=== PATIENT | female | born 2000 | race Caucasian/White ===

== ENCOUNTER → 2021-09-24 09:26 | Outpatient (BNVA) | payer OTHER, SELFPAY | PROVIDERS: Family Provider Family Medicine; PCP Nurse Practitioner Family; Visit Provider Obstetrics & Gynecology | DX: Z12.4 Encounter for screening for malignant neoplasm of cervix (principal) | CPT/HCPCS: 88175 ==

== ENCOUNTER 2022-08-26 03:54 | Inpatient (IN) | payer OTHER, SELFPAY ==
[2022-08-26] VITALS (105 sets, daily range): BP systolic 102–179; BP diastolic 54–102; PULSE 80–137; RESP 16–20; TEMP 36.1–37.6; O2SAT 96–99; BMI 39.6
[2022-08-26] MEDS: lactated ringers 1,000 ML 999 ML IV (01:44)
[2022-08-26] MEDS: fentaNYL 50 mcg/mL INJ 2mL IVP ×2 (01:44→02:46)
[2022-08-26 01:59] LABS: Basophils % 0.1 %; Eosinophils # 0.1 10^3/uL (0.0-0.8); Eosinophils % 0.6 %; Hematocrit 37.8 % (37.0-47.0); Hemoglobin 12.3 g/dL (11.5-15.3); Lymphocytes # 2.2 10^3/uL (0.8-4.8); Lymphocytes % 13.2 %; Mean Corpuscular HGB Conc 32.5 g/dL (30.0-36.0); Mean Corpuscular Hemoglobin 27.7 pg (28.0-34.0); Mean Corpuscular Volume 85.1 fl (81-99); Mean Platelet Volume 14.1 fL (7.4-10.4); Monocytes % 5.9 %; Neutrophils # 13.06 10^3/uL (1.8-7.7); Neutrophils % 79.8 %; Nucleated Red Blood Cells % 0 %; Platelet Count 152 10^3/cmm (130-400); Red Blood Count 4.44 10^6/uL (4.1-5.3); Red Cell Distribution Width 13.6 % (12.1-15.1); White Blood Count 16.4 10^3/uL (4.0-10.0)
--- NOTE | 2022-08-26 02:28 | ANES.PREANE2 ---
Pre-Anesthetic Assessment Height/Weight: Height 1.52 m Weight 92.079 kg Pulse Resp BP 93 18 141/86 08/26/22 02:11 08/26/22 01:44 08/26/22 02:11 Familial anesthetic complications: None Was Beta Angela taken within 24 hours: N/A Was Clonidine taken within 24 hours: N/A Last Intake: 18:30 Social No alcohol and No tobacco Exam alert, oriented x 3, clear to auscultation bilaterally and regular rate & rhythm Airway Submandibular: within normal limits Cervical ROM: within normal limits Mallampati: Class II Dentition: full History/ROS No significant history except as noted and No significant complaints Pulmonary None reported CV/HEM None reported None reported Hepatic None reported GI None reported Metabolic None reported Musc/skel Lower Back Pain Neuropsych None reported Anesthetic Plan ASA status: 2 Anesthesia: Anesthesia Evaluation and Eval. for regional block Risk of > 500 ml blood loss (7ml/kg in children): No Medications/Allergies Home Medications Medication Instructions Recorded Confirmed Last Taken Type prenat.vits,demarcus,cdz-rkif-gixgx 1 tab PO DAILY 08/26/22 08/26/22 08/25/22 21:00 History Allergies Allergy/AdvReac Type Severity Reaction Status Date / Time No Known Allergies Allergy Verified 08/26/22 00:55 Current Medications Generic Name Dose Route Start Last Admin Trade Name Freq PRN Reason Stop Dose Admin Fentanyl 25 - 100 mcg 08/26/22 01:21 08/26/22 01:44 Fentanyl 50 Mcg/Ml Inj 2ml IVP 25 mcg Q1H PRN Administration SEVERE PAIN Lactated Ringer's 1,000 mls @ 999 mls/hr 08/26/22 01:21 08/26/22 01:44 Lactated Ringers IV 999 mls/hr .Q1H1M PRN Administration See label comments PFSH Anesthesia Medical History (Updated 09/26/21 @ 11:14 by Ivonne Quiroz MD) No pertinent past medical history Denies diabetes, asthma, hypertension, seizures, DVT/PE PCP: None Surgical History (Updated 09/26/21 @ 11:14 by Ivonne Quiroz MD) No history of previous surgery Family History (Updated 09/24/21 @ 08:26 by Bea Heller RN) Mother Heart disease Hypertension Grandfather Hyperlipidemia maternal Stroke father Grandmother Ovarian cancer paternal, diagnosed in her 30s Denies family history of Colon cancer Diabetes Breast cancer Uterine cancer Thyroid condition Female Reproductive History : 1 Data Anesthesia 08/26/22 01:35 Short CBC 08/26/22 Range/Units 01:35 WBC 16.4 H (4.0-10.0) 10^3/uL Hgb 12.3 (11.5-15.3) g/dL Hct 37.8 (37.0-47.0) % MCV 85.1 (81-99) fl Plt Count 152 (130-400) 10^3/cmm Neut % (Auto) 79.8 % Neut # (Auto) 13.06 H (1.8-7.7) 10^3/uL Cardiac Studies: No Data to Display
--- NOTE | 2022-08-26 03:01 | ANES.PROC ---
Anesthesia Procedures Procedure/Date: 08/26/22 Epidural: Time Out Performed: Yes Consents Signed: Procedure Consent and NPO Consent Consent: requested by attending/covering physician, from patient, risks and benefits reviewed and patient agrees to proceed Lumbar Level: L3-L4 Epidural position: sitting Epidural procedure: sterile prep of area, 1% lidocaine to numb the area, neg for paresthesia, test dose given, 1.5% xylocaine 1:200k epi (3 mL/ 2mL), 0.2% Ropivacaine bolus ml (5), no systemic response, sterile dressing applied, L.U.D. no apparent complications and 0.2% Ropiavacaine @ mls/hr (11) Additional Comments: SHEMAR 8cm, catheter placed at 13 cm
[2022-08-26] MEDS: dextrose 5%-lactated ringers 1,000 ML 125 ML IV ×2 (03:36→12:15)
--- NOTE | 2022-08-26 06:50 | P.HPUD_ITS ---
Labor & Delivery H&P Update Date of Procedure: August 26, 2022 Date H&P Performed: 08/25/22 Changes to previous documentation: Upon arrival to hospital patient cervix was 3 cm dilated Admission Diagnosis: 22-year-old 1 female at 39 weeks estimated gestational age presenting in active labor Planned procedure: Spontaneous vaginal delivery Other information: The patient is a 22-year-old relatively healthy female who presented to the hospital in active labor. She been having increasingly more painful contr actions prior to her hospital admission. Her has been otherwise unremarkable. Her labs are as follows. Her blood type is O+. Her antibody screen is negative. Her initial urine culture grew out E. coli which was treated. She passed her glucose screen. She is rubella immune. Her glucose screen was negative.
[2022-08-26] MEDS: oxytocin 30 UNIT/500 ML BAG IV (10:10)
--- NOTE | 2022-08-26 17:16 | P.PCNOB_ITS ---
Delivery Note: Date of delivery: August 26, 2022 Pre-delivery diagnoses: 22-year-old G1 at 39 weeks estimated gestational age presenting to the hospital in active labor Post-delivery diagnoses: Status post spontaneous vaginal delivery Procedure: Spontaneous vaginal delivery Delivering Physician: Colby William Estimated blood loss (mL): 150 Pre-Delivery Course: The patient presented to the hospital in active labor. An epidural was placed. An amniotomy was performed. Her contractions spaced out and she was placed on Pitocin. She progressed to complete without difficulty. Delivery: DELIVERY: The patient progressed to complete without difficulty. She delivered a male with a weight of 6 pounds 2 ounces with Apgars of 6, 9. The baby was delivered from the SHASTA position and placed on the mother's abdomen. The mouth and nose were suctioned shortly after delivery. The cord was then clamped and cut. There was no nuchal cord. Moderate meconium was noted. The placenta and 3 vessel cord were delivered intact shortly thereafter. The perineum and vaginal vault were carefully examined. No lacerations were noted. Both the mother and the baby were in stable condition. Post-Delivery Status: Good History History History 1 Term Miscarriages/Ectopic Living Children A&P Assessment and plan (1) 39 weeks gestation of : (2) Spontaneous vaginal delivery: I anticipate routine care. Coding Level of Care Code Acute Equipment Service Associate for Chg Fwd Diagnoses 39 weeks gestation of Z3A.39 Spontaneous vaginal delivery O80
[2022-08-26] MEDS: ibuprofen 800 mg tablet PO (20:30)
[2022-08-26] MEDS: benzocaine-menthol 78 gm Canister 1 SPRAY TOPICAL (20:30)
[2022-08-26] MEDS: lanolin oint 7 gm 1 APPLIC TOPICAL (20:30)
[2022-08-26] MEDS: docusate sodium 100 mg Capsule PO (20:30)
[2022-08-27 01:17] VITALS: BP 135/88; PULSE 97; RESP 16
[2022-08-27 05:44] LABS: Hematocrit 32.4 % (37.0-47.0); Hemoglobin 10.2 g/dL (11.5-15.3); Mean Corpuscular HGB Conc 31.5 g/dL (30.0-36.0); Mean Corpuscular Hemoglobin 27.9 pg (28.0-34.0); Mean Corpuscular Volume 88.5 fl (81-99); Mean Platelet Volume 13.5 fL (7.4-10.4); Platelet Count 126 10^3/cmm (130-400); Red Blood Count 3.66 10^6/uL (4.1-5.3); Red Cell Distribution Width 14.2 % (12.1-15.1); White Blood Count 18.4 10^3/uL (4.0-10.0)
[2022-08-27 06:15] VITALS: BP 127/82; PULSE 111; RESP 15
[2022-08-27 07:26] VITALS: BP 132/83; PULSE 96; O2SAT 99
--- NOTE | 2022-08-27 07:35 | PM.OBGYDC ---
Discharge Providers SLATE CUTTER Date of Admission: 08/26/22 03:54 Date of Discharge: 08/27/22 Attending Provider at Admission: Colby William MD Attending Provider at Discharge: Colby William MD Primary Care Provider: JESUS Chen Diagnoses at Discharge Discharge Diagnosis (1) 39 weeks gestation of : Status: Acute (2) Spontaneous vaginal delivery: Status: Acute Reason for Visit Reason for Visit: CONTRACTIONS Hospital Course Hospital Course The patient presented to the hospital in active labor. An epidural was placed. An amniotomy was performed. She progressed to complete and had an unremarkable delivery of a healthy-appearing male infant. Her course was also unremarkable. Her bleeding was within normal limits. Her pain was well controlled. She breast-fed well. Information Peripartum Data: Delivery Method: Vaginal Physical Exam Narrative: The patient is alert. She appears comfortable. Her heart has a regular rate and rhythm with no murmurs appreciated. Lungs are clear to auscultation bilaterally. Her fundus is firm and below the umbilicus. Urinary Catheter Management: Gtz Latex: Cath Placed During This Visit: yes, but has since been removed by the nurse Reason for Continuing Indwelling Catheter: Decision to DC Catheter Urinary Catheter Date of Insertion: 08/26/22 Urinary Catheter Time of Insertion: 03:30 Date Urinary Catheter Removed: 08/26/22 Time Urinary Catheter Discontinued: 16:10 History History History 0 Term Miscarriages/Ectopic Living Children Discharge Data Studies Completed and Pending Laboratory Results WBC 18.4 10^3/uL (4.0-10.0) H 08/27/22 05: RBC 3.66 10^6/uL (4.1-5.3) L 08/27/22 05: Hgb 10.2 g/dL (11.5-15.3) L 08/27/22 05: Hct 32.4 % (37.0-47.0) L 08/27/22 05: MCV 88.5 fl (81-99) 08/27/22 05: MCH 27.9 pg (28.0-34.0) L 08/27/22 05: MCHC 31.5 g/dL (30.0-36.0) 08/27/22 05: RDW 14.2 % (12.1-15.1) 08/27/22 05:23 Plt Count 126 10^3/cmm (130-400) L 08/27/22 05:23 MPV 13.5 fL (7.4-10.4) H 08/27/22 05:23 Neut % (Auto) 79.8 % 08/26/22 01:35 Lymph % (Auto) 13.2 % 08/26/22 01:35 [place] % (Auto) 5.9 % 08/26/22 01:35 Eos % (Auto) 0.6 % 08/26/22 01:35 Baso % (Auto) 0.1 % 08/26/22 01:35 Neut # (Auto) 13.06 10^3/uL (1.8-7.7) H 08/26/22 01:35 Lymph # (Auto) 2.2 10^3/uL (0.8-4.8) 08/26/22 01:35 [place] # (Auto) 1.0 10^3/uL (0.2-0.9) H 08/26/22 01:35 Eos # (Auto) 0.1 10^3/uL (0.0-0.8) 08/26/22 01:35 Baso # (Auto) 0.0 10^3/uL (0.0-0.1) 08/26/22 01:35 Nucleated RBC % (auto) 0 % 08/26/22 01:35 Nucleated RBCs # 0.0 /100WBC 08/26/22 01:35 Vitals Last Vital Signs Temp 99.7 F H 08/26/22 17:40 Pulse 111 H 08/27/22 06:15 Resp 15 08/27/22 06:15 BP 127/82 08/27/22 06:15 Pulse Ox 99 08/26/22 03:24 O2 Del Method 08/26/22 03:41 Discharge Plan Discharge Patient Disposition: Home Condition: Stable Prescriptions: New ibuprofen 800 mg Tablet 800 mg PO TID Qty: 45 0RF Continued prenat.vits,demarcus,jmr-kuon-owtra Tablet 1 tab PO DAILY Discharge Orders: Discharge Order (Routine); Ordered 08/27/22 Ordered By: Colby William Referrals: Colby William MD [Physician] - 6 Weeks Discharge Diet: Usual diet Discharge Activity: Limit activity as instructed Patient Instructions: Opioid Safety Discharge Attestations SLATE CUTTER Time Spent in Discharge Care*: less than 30 min Coding Level of Care Code Acute Addiction Medicine Physician for Chg Fwd Diagnoses 39 weeks gestation of Z3A.39 Spontaneous vaginal delivery O80
[2022-08-27] MEDS: prenatal vitamin Capsule 1 CAP PO (09:16)
[2022-08-27] MEDS: docusate sodium 100 mg Capsule PO (09:16)
[2022-08-27] MEDS: ibuprofen 800 mg tablet PO ×2 (09:17→14:51)
[2022-08-27 11:00] VITALS: BP 124/85; PULSE 86; TEMP 36.8; O2SAT 98
--- NOTE | 2022-08-27 14:51 | ANE.PACU2 ---
Inpatient post-anesthesia follow up: Airway intact: Yes Vital signs: Temperature 98.2 F Pulse Rate 86 Respiratory Rate 15 Blood Pressure 124/85 Pulse Oximetry 98 Oxygen Delivery Me thod Room Air Oxygen Flow Rate Fraction of Inspir ed Oxygen Hydration adequate: Yes Nausea and vomiting: No Pain level: 2 Mental status: Baseline
[2022-08-27 17:26] VITALS: BP 125/87; PULSE 95; TEMP 36.6; O2SAT 98
[2022-08-27 17:56] VITALS: BP 125/87; PULSE 95; TEMP 36.6; O2SAT 98
== END 2022-08-27 18:16 | disposition home or self-care (01) | DRG 807 ==
LOC: OPOB 07:30
PROVIDERS: Admitting Provider Family Medicine; PCP Nurse Practitioner Family; Visit Provider Family Medicine
DX: O80 Encounter for full-term uncomplicated delivery (principal); Z37.0 Single live birth; Z3A.39 39 weeks gestation of pregnancy
CPT/HCPCS: 12345; 36415; 51702; 59025; 59409; 85025; 85027; 96374; 96376; 98960; 99211; J2590; J2795; J3010; J7120; J7121

== ENCOUNTER → 2025-01-18 15:35 | Outpatient (BNVA) | payer OTHER, SELFPAY | PROVIDERS: PCP Nurse Practitioner Family; Visit Provider Nurse Practitioner Women's Health | DX: R53.82 Chronic fatigue, unspecified (principal) | CPT/HCPCS: 80053; 82306; 82607; 82728; 82746; 83036; 83540; 84439; 84443; 85025 ==

== ENCOUNTER → 2025-02-09 14:51 | Outpatient (BNVA) | payer OTHER, SELFPAY | PROVIDERS: PCP Nurse Practitioner Family; Visit Provider Nurse Practitioner Women's Health | DX: Z12.4 Encounter for screening for malignant neoplasm of cervix (principal) | CPT/HCPCS: 88175 ==